=== PATIENT | male | born 1980 | race African-American/Black ===

== ENCOUNTER 2022-01-16 10:07 | Emergency (ER) | payer OTHER, SELFPAY ==
[2022-01-16 10:10] VITALS: BP 176/96; PULSE 59; RESP 14; TEMP 36.7; O2SAT 100; BMI 30.3
--- NOTE | 2022-01-16 10:20 | EKG12_ITS ---
Test Reason : Blood Pressure : / mmHG Vent. Rate : 065 BPM Atrial Rate : 065 BPM P-R Int : 192 ms QRS Dur : 102 ms QT Int : 394 ms P-R-T Axes : 052 070 046 degrees QTc Int : 409 ms Normal sinus rhythm Septal infarct , age undetermined Abnormal ECG Confirmed by CHRISTIE SRIVASTAVA, ERNESTINA ([id number]), brands editor GIOVANNA TINAJERO ([id number]) on 01/17/2022 1:23:53 PM Referred By: Confirmed By:ERNESTINA SORIANO MD
--- NOTE | 2022-01-16 10:20 | RAD_ITS ---
STUDY: X-RAY CHEST REASON FOR EXAM: Male, 41 years old. chest pain TECHNIQUE: AP COMPARISON: None. FINDINGS: EKG leads project over the chest. The lungs are clear and expanded. There is no demonstrated pleural abnormality. Normal size heart. Normal mediastinum and taye. Normal visualized pulmonary arteries. Normal visualized aortic arch and descending thoracic aorta. Normal visualized thoracic spine. Normal visualized ribs, clavicles, and shoulders. There is no demonstrated abnormality of the visualized soft tissue structures of the upper abdomen. RAD/Chest 1 View (Portable) IMPRESSION: Nonacute portable x-ray examination of the chest. Electronically Signed: Yehuda Moore MD (Brooks) at 10:54 EDT ,
--- NOTE | 2022-01-16 10:21 | EX.ED.DYSGE1 ---
HPI History of Present Illness Chief Complaint: Anxiety Narrative Narrative: Patient with past medical history of depression and anxiety, coronary artery disease, type 2 diabetes, hypertension, and hypercholesterolemia presents with anxiety regarding chest pain that he has been having over the last few months. He relates history that 7 to 8 years ago he was diagnosed with coronary artery disease. One of his arteries was was 100% blocked but they did not perform surgery on it because he had developed collaterals and had good blood flow. He needed no intervention on his other arteries at that time. 2 [facility] 3 [facility] BuSpar. He usually takes Xanax as needed and has been taking it more because he is lying in bed at times wondering if anything can happen with his coronary artery disease. He does not want to have a heart attack and he begins to worry. He feels this is stressing his heart. He does not have actual chest pains at times but gets blurry vision and becomes dizzy and lightheaded. He states he went to [place] 2 weeks ago where they performed troponins but he had an abnormal EKG. They wanted him to stay and be transferred to [facility], but he did not want to stay, and they allowed him to leave but suggested he get follow-up. He is unable [facility] in a timely fashion. He states he is not necessarily having chest pain but he feels very anxious and gets the symptoms of panic attacks which she has had in the past with the chest tightness and dizziness with blurred vision. He denies any leg swelling. No shortness of breath. No nausea or vomiting. No diaphoresis. [facility] Medical History (Updated 01/16/22 @ 13:56 by Curtis Lynch MD) Anxiety CAD (coronary artery disease) Depression Diabetes mellitus HTN (hypertension) Hypercholesteremia Home Medications alprazolam [Xanax] 0.25 mg PO BID PRN 01/16/22 [History Last Taken Unknown] amlodipine [Norvasc] 10 mg PO DAILY 01/16/22 [History Last Taken Unknown] atorvastatin [Lipitor] 80 mg PO DAILY 01/16/22 [History Last Taken Unknown] empagliflozin [Jardiance] 10 mg PO DAILY 01/16/22 [History Last Taken Unknown] hydrochlorothiazide 12.5 mg PO DAILY 01/16/22 [History Last Taken Unknown] icosapent ethyl [Vascepa] 4 g PO DAILY 01/16/22 [History Last Taken Unknown] lisinopril 40 mg PO DAILY 01/16/22 [History Last Taken Unknown] metformin 500 mg PO BID 01/16/22 [History Last Taken Unknown] metoprolol tartrate 12.5 mg PO DAILY 01/16/22 [History Last Taken Unknown] nitroglycerin 0.4 mg SUBLINGUAL Q5M PRN 01/16/22 [History Last Taken Unknown] Allergy/AdvReac Type Severity Reaction Status Date / Time No Known Allergies Allergy Verified 01/16/22 10:10 Social History Smoking Status: Never smoker ROS ROS ED ROS Narrative Constitutional: No fever, no chills. HEENT: No sore throat. No neck pain. No loss of vision. Occasional blurred vision with panic attacks. No rhinorrhea. Cardiovascular: Positive chest tightness/chest pain. No palpitations. No pedal edema. Respiratory: No cough, no shortness of breath. Abdominal: No abdominal pain. No nausea. No vomiting. Genitourinary: No dysuria. No hematuria. Musculoskeletal: No myalgias. No arthralgias. Neurologic: No headaches. Positive dizziness. Positive lightheadedness. Skin: No rash. No change in color. Psychiatric: No depression. Positive panic attacks/anxiety. EXAM Physical Exam Narrative Exam Narrative: Afebrile. Vital signs noted. HEENT: Normocephalic. Atraumatic. PERRL, EOMI. Neck soft and supple. No point tenderness or step off. Cardiovascular: Regular rate and rhythm on examination. No murmurs, rubs, or gallops appreciated. Respiratory: No tachypnea. Lungs clear to auscultation bilaterally. Gastrointestinal: Abdomen soft, nontender, with normoactive bowel sounds. No rebound or guarding. Neurological: Awake. Alert. Nonfocal, nonlateralizing. Skin: No rash. Normal color. No pallor. Musculoskeletal: No pedal edema. Full range of motion extremities. Psychiatric: Mild anxiety. No suicidal ideation. No active hallucinations. Const Vital Signs: 01/16/22 10:10 01/16/22 10:26 01/16/22 12:18 Temperature 98.1 F Temperature Source Temporal Pulse Rate 59 L 57 L Respiratory Rate 14 22 H Blood Pressure 176/96 H 137/86 H Blood Pressure Mean 122 103 Pulse Ox 100 95 Oxygen Delivery Method Room Air Room Air Room Air MDM MDM MDM Narrative Medical decision making narrative: I do feel that his symptomatology is more related to anxiety and panic attacks. He is concerned about his coronary artery disease. Chest pain work-up was pursued. EKG demonstrates normal sinus rhythm at 65 bpm without ectopy or acute ST changes. No STEMI. CBC is grossly normal with a normal white count of 7.0, hemoglobin normal at 15.5. Platelet count normal at 245. Electrolyte panel is grossly unremarkable. Initial high-sensitivity troponin normal at 6. 2-hour high-sensitivity troponin normal at 8. Delta is less than 7. Hence, I feel that he has been ruled out with biomarkers. Chest x-ray interpreted by myself shows no acute process. No pneumothorax or consolidation. At this point in time, I feel he can be discharged safely home with follow-up. He was referred to the real estate executive assistant on-call. He will also follow-up with the [facility]. Return instructions were reviewed. He will continue his antianxiety medications. Disposition is discharged home in stable condition. Lab Data Attestation: I reviewed the patient's lab results. Labs: Laboratory Results - last 24 hr 01/16/22 01/16/22 01/16/22 10:30 10:30 12:50 WBC 7.0 RBC 4.85 Hgb 15.5 Hct 45.6 MCV 94.0 MCH 32.0 MCHC 34.0 RDW Std Deviation 45.0 H RDW Coeff of Tomer 13.0 Plt Count 245 MPV 9.9 Immature Gran % (Auto) 0.300 Neut % (Auto) 68.3 Lymph % (Auto) 22.3 [place] % (Auto) 6.4 Eos % (Auto) 2.4 Baso % (Auto) 0.3 Absolute Neuts (auto) 4.8 Absolute Lymphs (auto) 1.57 Nucleated RBC % 0 Sodium 137 Potassium 3.5 Chloride 103 Carbon Dioxide 27.0 Anion Gap 7 BUN 18 Creatinine 1.05 Estim Creat Clear Calc 87.76 Est GFR (MDRD) Af Amer 99 Est GFR (MDRD) Non-Af 82 BUN/Creatinine Ratio 17.1 Glucose 138 H Calcium 9.3 Troponin I High Sens 6 8 Radiography Diagnostic Testing: Clinical Impression(s) from Imaging Studies Chest X-Ray 01/16/22 10:20 IMPRESSION: Nonacute portable x-ray examination of the chest. Electronically Signed: Yehuda Moore MD (Brooks) at 10:54 EDT Reading Location ID and State: [address] [place] [address] , Service support , Discharge Plan Triage Chief Complaint: Anxiety ED Provider: Curtis Lynch Dx/Rx/DC Orders Clinical Impression: Chest pain, Panic attacks, Anxiety Instructions: ED Chest Pain, Noncardiac, ED Panic Attack Prescriptions: No Action metformin 500 mg Tablet 500 mg PO BID RF: 0 atorvastatin [Lipitor] 80 mg Tablet 80 mg PO DAILY RF: 0 alprazolam [Xanax] 0.25 mg Tablet 0.25 mg PO BID PRN (Reason: Anxiety) RF: 0 amlodipine [Norvasc] 10 mg Tablet 10 mg PO DAILY RF: 0 hydrochlorothiazide 12.5 mg Capsule 12.5 mg PO DAILY RF: 0 lisinopril 40 mg Tablet 40 mg PO DAILY RF: 0 metoprolol tartrate 25 mg Tablet 12.5 mg PO DAILY RF: 0 icosapent ethyl [Vascepa] 1 gram Capsule 4 g PO DAILY RF: 0 Jardiance 10 mg Tablet 10 mg PO DAILY RF: 0 nitroglycerin 0.4 mg Tablet, Sublingual 0.4 mg SUBLINGUAL Q5M PRN (Reason: Chest Pain) RF: 0 Referrals: MILO BO [Other] Luis Fernando Osorio MD [STAFF PHYSICIAN] - As soon as possible Disposition Disposition: Home, Self Care
[2022-01-16 10:41] LABS: Absolute Lymphocyte Count 1.57 X10^3/uL (0.83-4.51); Absolute Neutrophil Count 4.8 X10^3/uL (2.0-7.7); Basophil# 0.02 X10^3/uL; Basophil% 0.3 % (0-1); Eosinophil# 0.17 X10^3/uL; Eosinophils% 2.4 % (0-5); Hematocrit 45.6 % (40-54); Hemoglobin 15.5 g/dL (13.0-16.5); Lymphocyte # 1.57 X10^3/ul (0.83-4.51); Lymphocyte % 22.3 % (19-41); Mean Platelet Vol. 9.9 fl (6.2-12.0); Monocyte# 0.45 X10^3/uL; Monocyte% 6.4 % (0-10); NRBC Flagged by Analyzer 0 % (0-5); Neutrophil # 4.81 X10^3/uL (2.7-7.7); Neutrophil % 68.3 % (47-70); Platelet Count 245 K/mm3 (150-450); Red Blood Count 4.85 M/mm3 (4.6-6.2)
[2022-01-16 10:58] LABS: Anion Gap 7 (5-15); BUN 18 mg/dL (7-18); BUN/Creat Ratio 17.1 RATIO (10-20); Calcium,Total 9.3 mg/dL (8.5-10.1); Chloride 103 mmol/L (98-107); Creatinine, Serum 1.05 mg/dL (0.70-1.30); EST Glomerular Filtration Rate 82 mL/min (>60); Est Glom Filt Rate - Afr Amer 99 mL/min (>60); Estimated Creatinine Clearance 87.76 ml/min; Glucose 138 mg/dL (74-106); Potassium 3.5 mmol/L (3.5-5.1); Sodium Level 137 mmol/L (136-145); Troponin-I HS (w/2H Reflex) 6 pg/mL (3.0-78.0)
[2022-01-16 12:18] VITALS: BP 137/86; PULSE 57; RESP 22; O2SAT 95
[2022-01-16 12:38] LABS: Reflex Troponin-HS? (from REC) Y
[2022-01-16 13:12] LABS: Troponin-I HS 8 pg/mL (3.0-78.0)
[2022-01-16 13:56] VITALS: BP 125/91; PULSE 61; RESP 18; O2SAT 96
== END 2022-01-16 14:06 | disposition home or self-care (01) ==
PROVIDERS: Emergency Provider Emergency Medicine; Visit Provider Emergency Medicine
DX: F41.0 Panic disorder [episodic paroxysmal anxiety] (principal); E11.9 Type 2 diabetes mellitus without complications; R07.9 Chest pain, unspecified; I10 Essential (primary) hypertension; I25.10 Atherosclerotic heart disease of native coronary artery without angina pectoris; E78.00 Pure hypercholesterolemia, unspecified; F32.A Depression, unspecified; Z79.84 Long term (current) use of oral hypoglycemic drugs; Z79.899 Other long term (current) drug therapy
CPT/HCPCS: 71045; 80048; 84484; 85025; 93005; 99284

== ENCOUNTER → 2022-03-12 | Outpatient (CLI) | payer OTHER, SELFPAY ==
--- NOTE | 2022-03-12 06:52 | ECHOD_ITS ---
Reason For Study: CAD/ASHD Procedure This was a 2D Doppler, Color Flow transthoracic echocardiogram. Exam performed in department. Left Ventricle Normal LV size. Left ventricular systolic function is normal. The estimated ejection fraction is 60 %. Stage 1 diastolic dysfunction. No regional wall motion abnormalities noted. Right Ventricle Normal RV size. Normal systolic function. Atria Normal left atrium. Normal right atrium. Mitral Valve Normal mitral valve. Tricuspid Valve Normal tricuspid valve. Aortic Valve Normal aortic valve. Pulmonic Valve Normal pulmonic valve. Great Vessels Normal aortic root. The pulmonary artery is normal size. Normal inferior vena cava. Pericardium/Pleural No pericardial effusion. MMode/2D Measurements & Calculations LVIDd: 5.5 cm IVSd: 0.61 cm Ao root diam: 3.7 cm LVIDs: 3.9 cm LVPWd: 0.89 cm LA dimension: 3.3 cm RVDd: 3.7 cm FS: 29.4 % LAV(MOD-bp): 31.9 ml LA A4 area: 12.3 cm2 RA A4 area: 12.8 cm2 LAV(MOD-bp) Indexed: 15.8 ml/m2 LAV(MOD-sp2): 36.1 ml LAV(MOD-sp4): 27.5 ml Time Measurements MV dec time: 0.31 sec Doppler Measurements & Calculations MV E max lamont: 49.2 cm/sec Lat Peak E' Lamont: 6.1 cm/sec Med Peak E' Lamont: 5.3 cm/sec MV A max lamont: 89.7 cm/sec E/E' lat: 8.1 E/E' med: 9.3 MV E/A: 0.55 MV V2 max: 86.7 cm/sec MV P1/2t max lamont: 60.2 cm/sec Ao V2 max: 69.5 cm/sec MV max P.0 mmHg MV P1/2t: 100.5 msec Ao max P.9 mmHg MV V2 mean: 48.1 cm/sec MV dec slope: 175.4 cm/sec2 MV mean P.1 mmHg MVA(P1/2t): 2.2 cm2 MV V2 VTI: 17.0 cm LV V1 max: 74.7 cm/sec PA V2 max: 102.0 cm/sec LV V1 max P.2 mmHg ECHO/Echo Complete Interpretation Summary Normal LV size. Left ventricular systolic function is normal. The estimated ejection fraction is 60 %. Stage 1 diastolic dysfunction. Ordering Physician: Luis Fernando Osorio Referring Physician: Luis Fernando Osorio Performed By: Nito Agarwal RCS
[2022-03-12 10:13] LABS: AST(SGOT) 19 U/L (15-37); Alanine Aminotransfer ALT/SGPT 30 U/L (16-61); Albumin, Serum 4.1 g/dL (3.2-5.0); Alkaline Phosphatase 40 U/L (45-117); Bilirubin, Direct 0.14 mg/dL (0.00-0.30); Cholesterol 166 mg/dL (200); Globulin 3.6 g/dL (2.2-4.2); High Density Lipoprotein 30 mg/dL; Protein, Total 7.7 g/dL (6.4-8.2); Triglycerides 145 mg/dL; Very Low Density Lipoprotein 29 mg/dL (5-40)
--- NOTE | 2022-03-12 10:31 | STRESSREP ---
Stress Test Report Exercise myocardial perfusion stress test. 41-year-old man with a history of coronary artery disease. Stress protocol: Resting EKG demonstrates normal sinus rhythm with a rate of 60 bpm nonspecific EKG changes noted at rest. Resting blood pressure is 140/82 mmHg. The patient exercised according to the regular Bhargav protocol for total duration of 9 minutes. Patient completed stage III of the Bhargav protocol. The maximum heart rate attained was 157 bpm which was 88% of max impacted heart rate the maximum workload was 10.1 metabolic equivalents. At rest there were no ST or T wave changes noted to suggest ischemia and at peak exercise nonspecific ST changes were noted. The test was terminated due to the target heart rate being achieved and neck discomfort. No clinical angina was noted. The peak blood pressure was 182/78 mmHg which was a good blood pressure response to exercise. Myocardial perfusion protocol. 12.0 mCi of technetium 99m sestamibi was injected at rest. Patient exercised according to regular Bhargav protocol for 9 minutes and at peak exercise 34.5 mCi of technetium 99m sestamibi was injected stress images were obtained stress and rest images were reconstructed in comparing the short axis vertical long horizontal long axis. Gated images were also obtained to Perfusion SPECT analysis: Review of the stress images demonstrate normal uptake of tracer noted in the septum anterior wall and lateral wall. The inferior wall demonstrates an area of perfusion defect in the mid to distal inferior wall and apex. The resting images demonstrate improvement in this area. There is also some GI attenuation artifact noted. However the above is suggestive of inferior ischemia. No previous infarct is noted. Gated SPECT analysis: The gated ejection fraction is 70%. Conclusion: Abnormal exercise myocardial perfusion stress test with inferior ischemia. Preserved ejection fraction. Excellent functional capacity.
== END | disposition home or self-care (01) ==
PROVIDERS: Referring Provider Internal Medicine Cardiovascular Disease; Visit Provider Internal Medicine Cardiovascular Disease
DX: I25.10 Atherosclerotic heart disease of native coronary artery without angina pectoris (principal); I10 Essential (primary) hypertension; E78.5 Hyperlipidemia, unspecified
CPT/HCPCS: 36415; 78452; 80061; 80076; 93017; 93306; A9500; A4216

== ENCOUNTER 2022-03-19 09:56 | Day surgery (SDC) | payer OTHER, SELFPAY ==
[2022-03-15 08:53] LABS: Absolute Lymphocyte Count 1.74 X10^3/uL (0.83-4.51); Absolute Neutrophil Count 3.5 X10^3/uL (2.0-7.7); Basophil# 0.03 X10^3/uL; Basophil% 0.5 % (0-1); Eosinophil# 0.11 X10^3/uL; Eosinophils% 1.9 % (0-5); Hematocrit 45.1 % (40-54); Hemoglobin 15.4 g/dL (13.0-16.5); Lymphocyte # 1.74 X10^3/ul (0.83-4.51); Lymphocyte % 29.6 % (19-41); Mean Corp Hgb Conc 34.1 g/dL (32-36); Mean Corpuscular Hgb 32.4 pg (27.0-32.0); Mean Corpuscular Volume 94.9 fL (80-94); Mean Platelet Vol. 9.8 fl (6.2-12.0); Monocyte# 0.47 X10^3/uL; NRBC Flagged by Analyzer 0 % (0-5); Neutrophil # 3.49 X10^3/uL (2.7-7.7); Neutrophil % 59.3 % (47-70); Platelet Count 290 K/mm3 (150-450); RBC Distribution Width CV 12.6 % (11.6-14.6); RBC Distribution Width SD 44.3 fl (35.1-43.9); Red Blood Count 4.75 M/mm3 (4.6-6.2); White Blood Count 5.9 K/mm3 (4.4-11.0)
[2022-03-15 09:30] LABS: Anion Gap 7 (5-15); BUN 14 mg/dL (7-18); BUN/Creat Ratio 13.3 RATIO (10-20); Calcium,Total 9.5 mg/dL (8.5-10.1); Chloride 102 mmol/L (98-107); Creatinine, Serum 1.05 mg/dL (0.70-1.30); EST Glomerular Filtration Rate 82 mL/min (>60); Est Glom Filt Rate - Afr Amer 99 mL/min (>60); Glucose 155 mg/dL (74-106); Potassium 3.8 mmol/L (3.5-5.1); Sodium Level 137 mmol/L (136-145)
[2022-03-16 09:11] VITALS: BMI 30.7
--- NOTE | 2022-03-19 09:56 | HP_ITS ---
HPI HPI History of Present Illness Details: Lucasasant 41-year-old male with a history of premature coronary artery disease anxiety who underwent a cardiac catheterization in 2015. It demonstrated right coronary artery which was a dominant vessel it was a large caliber and moderately ectatic in the proximal and mid portions. The right ventricular branch had a 95 to 99% stenosis in the second obtuse marginal branch had a diffuse 95% stenosis. Third right ventricular branch was medium caliber with diffuse 95 to 99% stenosis. The PDA branch was subtotally occluded and filled in a delayed fashion. The right posterior AV groove branch which gave off a second posterolateral branch also had an 80% stenosis. The left anterior descending artery was large with a 30% proximal plaque mid LAD with 40 to 50% plaque in distal LAD with 70% stenosis followed by total occlusion. The apical portion of the LAD fills via left to left collaterals. The circumflex artery was tortuous and appeared to be occluded after branch vessel. Ejection fraction however appeared to be normal at 68% with a discrete segment of the inferior apical area which was akinetic. Medical therapy was recommended and aggressive risk factor modification was sought. His last echocardiogram in January 2020 demonstrated an ejection fraction of 50 to 55% and a stress test from February 2020 demonstrated no evidence of ischemia at a high workload of 11.6 metabolic equivalents. He follows up at the [facility] and was noted to have very low HDL. He currently denies any chest pain or paroxysmal nocturnal dyspnea or pedal edema. He had complained of some blurred vision after he had been put on a medication through the [facility]. His physical exam demonstrates clear lung gan regular rate and rhythm no pedal edema his electrocardiogram demonstrates normal sinus rhythm with a rate of 65 bpm. Intake Vital Signs 01/16/22 10:10 02/13/22 11:32 02/13/22 11:42 Height 5 ft 8 in 5 ft 8 in 5 ft 8 in Weight: 199 lb 8.293 oz 202 lb BMI 30.3 30.7 BP 176/96 H 148/98 H Respiration 14 16 Pulse 59 L 72 Temp 98.1 F Pulse Oximetry (%) 100 98 Intake Visit Reasons: EST CARE Allergies No Known Allergies Allergy (Verified 02/08/22 11:20) Medications amlodipine 10 mg tablet (Norvasc) 10 mg PO DAILY 01/16/22 [History Confirmed 02/13/22] lisinopril 40 mg tablet 40 mg PO DAILY 01/16/22 [History Confirmed 02/13/22] alprazolam 0.25 mg tablet (Xanax) 0.25 mg PO DAILY PRN Anxiety 02/08/22 [History Confirmed 02/13/22] atorvastatin 80 mg tablet (Lipitor) 80 mg PO QHS 02/08/22 [History Confirmed 02/13/22] bupropion HCl 300 mg 24 hr tablet, extended release 300 mg PO DAILY 02/08/22 [History Confirmed 02/13/22] chlorthalidone 25 mg tablet 12.5 mg PO DAILY 02/08/22 [History Confirmed 02/13/22] clopidogrel 75 mg tablet 75 mg PO DAILY 02/08/22 [History Confirmed 02/13/22] empagliflozin 25 mg tablet (Jardiance) 25 mg PO DAILY 02/08/22 [History Confirmed 02/13/22] fenofibrate 54 mg tablet 54 mg PO DAILY 02/08/22 [History Confirmed 02/13/22] metformin 500 mg tablet 1,000 mg PO BID 02/08/22 [History Confirmed 02/13/22] metoprolol succinate 50 mg tablet,extended release 24 hr 50 mg PO DAILY 02/08/22 [History Confirmed 02/13/22] icosapent ethyl 1 gram capsule (Vascepa) 2 g PO BID #28 caps 02/13/22 [Rx Confirmed 02/13/22] nitroglycerin 0.4 mg sublingual tablet 0.4 mg sublingual Q5-15M PRN Chest Pain 02/13/22 [History Confirmed 02/13/22] paroxetine HCl 20 mg tablet (Paxil) 20 mg PO DAILY 02/13/22 [History Confirmed 02/13/22] [facility] Medical History (Updated 02/12/22 @ 16:46 by Monica Quinonez) Anxiety Atherosclerosis of coronary artery of [place] heart without angina pectoris Depression Essential hypertension Hyperlipidemia Obesity Type 2 diabetes mellitus without complication Surgical History (Updated 02/08/22 @ 11:44 by Lily Chinchilla) History of left heart catheterization (10/12/15) Family History (Updated 02/08/22 @ 11:36 by Lily Chinchilla) Father Heart disease CAD (coronary artery disease) CABG Mother Heart disease Social History (Updated 02/08/22 @ 11:32 by Lily Cihnchilla) Smoking Status: Current every day smoker alcohol intake: current substance use type: does not use caffeine: Yes (4-5 per day) ROS Const Const: Positive for other (episodes of lightheadedness, blurred vuision and SOB ); Negative for fatigue, weakness, headache(s), frequent falls, difficulty sleeping or excessive sweating Eyes Eyes: Positive for blurry vision and tunnel vision; Negative for loss of peripheral vision, transient loss of vision or double vision ENT ENT: Negative for headache(s), dizziness, Nosebleed/epistaxis or balance problems Cardio Chest Pain: No Palpitations: No Edema: None Muscle aches with walking: None Resp Respiratory: Positive for SOB with activity; Negative for SOB at rest, SOB orthopnea\SOB lying down, Cough or paroxysmal nocturnal dyspnea GI GI: Negative nausea, vomiting, heartburn or black,tarry stools : Negative for hematuria Musc Musc: Negative for muscle aches/ myalgia, muscle weakness, joint pain or balance problems Skin Skin: Negative non-healing lesions, rash or unusual bruising Neuro Neuro: Positive for blurry vision; Negative for dizziness, lightheadedness, near syncope, syncope, orthostatic symptoms, frequent falls, headache(s), weakness, double vision or lack of coordination Sam Hematologic/Lymphatic: Negative for easy bleeding or easy bruising Endo Endo: Negative for fatigue, excessive sweating or increased thirst/drinking Psych Psych: Positive for anxiety; Negative for depression Allergy Allergy/Immunology: Negative for hives and Negative for rash Supplemental Info Supplemental Information Labs: No Data to Display Diagnostics: Electrocardiogram Chest X-Ray Pulmonary: No Data to Display Assessment and Plan Assessment and Plan (1) Atherosclerosis of coronary artery of [place] heart without angina pectoris: Status: Chronic Plan: He does have significant premature atherosclerotic cardiovascular disease. He appears to be on stable medications. My recommendation would be for us to perform an exercise stress test as well as an echocardiogram. He should perform the above on medications and depending on the findings further recommendations will be made. If his lipid levels are elevated I would recommend that he be considered a candidate for Repatha due to his high risk factor profile. (2) Essential hypertension: Status: Chronic Plan: His blood pressure appears to be under good control at this particular time I would not recommend that we make any changes. Orders: Orders Echo Complete Today I10 - Essential (primary) hypertension, I25.10 - Atherosclerotic heart disease of [place] coronary artery without angina pectoris Nuclear Stress Test - Treadmil Today I10 - Essential (primary) hypertension, I25.10 - Atherosclerotic heart disease of [place] coronary artery without angina pectoris Medications: New icosapent ethyl (Vascepa) 2 grams (2 x 1 gram) PO BID 28 caps 2RF Refilled icosapent ethyl (Vascepa) 2 grams (2 x 1 gram) PO BID 28 caps 2RF Plan Details Follow Up: 1 Year (medical administrative) Coding Level of Care Code Off vis,new,level 4 Diagnoses Atherosclerosis of coronary artery of [place] heart without angina pectoris I25.10 Essential hypertension I10 Coding Level of Care Code Off vis,new,level 4 Diagnoses Atherosclerosis of coronary artery of [place] heart without angina pectoris I25.10 Essential hypertension I10
--- NOTE | 2022-03-19 13:58 | CL.D_ITS ---
Patient Name: SOHAM FLEMING Study Date: 03/19/2022 Performing: Luis Fernando Osorio MD Ht: 68 inches 173 cm : 1980 Wt: 203.1 lbs 92 kg Age: 41 Gender: male BSA: 2.06 PROCEDURE(S) PERFORMED [id number])LHC/COR CLINICAL PROFILE AND INDICATIONS Indications: Stable Known CAD Heart Failure: None Stress/Imaging Date: 03/12/22Stress Test with SPECT MPI: Positive Intermediate Risk CONCLUSIONS Severe triple-vessel disease as noted above with preserved left ventricular systolic function. The a andrew images were compared to the previous catheterization from 2016, and it does not appear that ther e were significant changes noted. RECOMMENDATIONS Medical therapy DESCRIPTION OF PROCEDURE The patient arrived to the procedure lab. The risks and benefits of the procedure as well as a full d escription of our services here and current unavailability of surgical backup were fully explained to the patient and/or their significant other prior to the catheterization. The Timeout was completed, verifying the correct patient and procedure. The patient's procedural site was prepped and draped in the usual fashion. Local anesthetic was given subcutaneously to right radial region with Lidocaine 2% . Using a modified Seldinger technique, arterial access was obtained via the right radial artery, a 6 Fr sheath was inserted. Left Coronary Artery selective angiography was performed in multiple views u sing a 5 Fr. 4.0 [place] catheter. Right Coronary Artery selective angiography was then performed in mu ltiple views using a 5 Fr. 4.0 [place] catheter. Left Ventriculography was performed in GASCA projection using a 5 Fr. [place] catheter. LV to AO pullback pressures were then recorded.The arterial sheath was pulled and a TR Band was applied for hemostasis. 12cc air inserted. CORONARY ANGIOGRAPHY DOMINANCE: Right Dominant LEFT HEART ASSESSMENT Left Ventricular Ejection Fraction: by LV Gram 55 % Normal LV wall motion Normal Left Ventricular systolic function LEFT MAIN: Angiographically normal LEFT ANTERIOR DESCENDING ARTERY: Left anterior descending artery has a proximal 30% plaque in the mid left anterior descending artery has a 50% stenosis. The mid to distal LAD has an 80% stenosis and t hen subtotally occluded with the apical portion of the LAD filling via left to left collaterals and l [id number] collaterals. CIRCUMFLEX ARTERY: Circumflex artery is tortuous with a proximal 30 to 40% stenosis and then the vess el continues with a large distal OM with a 70% stenosis there is right to left collaterals filling th e distal left circumflex artery which appears to be occluded RIGHT CORONARY ARTERY: Large-caliber dominant vessel which is ectatic with a first right ventricular branch which has diffuse 95 to 99% stenosis in the second right ventricular branch with diffuse 95% s tenosis. The mid right coronary artery is approximately 50% stenotic and there is a posterior descen ding artery which is subtotally occluded in 2 posterolateral vessels which both have 80% stenotic les ions. The distal right coronary artery supplies collaterals to the distal circumflex artery. COLLATERAL FLOW: Collateral flow from Right to Left COMPLICATIONS No Complications PROCEDURE MEDICATIONS Fentanyl 50 mcg IV Versed 1 mg IV Versed 1 mg IV Versed 1 mg IV Oxygen: 2 L/min via nasal cannula Heparin given IA 03/19/2022 13:32:03 Verapamil 2.5mg, Ntg 100mcgs, 3000 units of Heparin given IA 03/19/2022 13:32:03 SUMMARY OF HEMODYNAMIC DATA Time AIR REST ECG 10:22:12 AO 123/88 (106) SA 13:32:53 LV 118/6, 10 13:40:41 LV 115/6, 10 13:40:49 LV 110/8, 12 13:42:05 LVp 112/8, 13 13:42:09 AOp 120/77 (96) 13:42:16 Signed By Luis Fernando Osorio MD On 03/19/2022 1:57:25 PM Luis Fernando Osorio MD
== END 2022-03-19 16:25 | disposition home or self-care (01) ==
PROVIDERS: Referring Provider Internal Medicine Cardiovascular Disease; Visit Provider Internal Medicine Cardiovascular Disease
DX: I25.10 Atherosclerotic heart disease of native coronary artery without angina pectoris (principal); E11.9 Type 2 diabetes mellitus without complications; E66.9 Obesity, unspecified; Z68.30 Body mass index [BMI] 30.0-30.9, adult; E78.5 Hyperlipidemia, unspecified; I10 Essential (primary) hypertension; F17.200 Nicotine dependence, unspecified, uncomplicated; Z79.02 Long term (current) use of antithrombotics/antiplatelets; Z79.84 Long term (current) use of oral hypoglycemic drugs; Z79.899 Other long term (current) drug therapy
CPT/HCPCS: 36415; 80048; 85025; 93458; 99152; 99153; J7030; Q9967; C1769; C1894